=== PATIENT | female | born 1950 | race Caucasian/White ===

== ENCOUNTER → 2023-06-17 16:08 | Outpatient (REF) | payer MEDICARE, SELFPAY | LOC: HWRAD 16:08 | PROVIDERS: ATTENDING PHYSICIAN Physician Assistant Medical | DX: R05.1 Acute cough (principal) | CPT/HCPCS: 71046 ==

== ENCOUNTER → 2023-06-29 18:30 | Outpatient (REF) | payer MEDICARE, SELFPAY | LOC: WDC 18:30 | PROVIDERS: ATTENDING PHYSICIAN Physician Assistant Medical | DX: Z12.31 Encounter for screening mammogram for malignant neoplasm of breast (principal) | CPT/HCPCS: 77063; 77067 ==

== ENCOUNTER → 2023-09-25 11:30 | Outpatient (REF) | payer MEDICARE, SELFPAY | LOC: RAD 11:30 | PROVIDERS: ATTENDING PHYSICIAN Internal Medicine; FAMILY PHYSICIAN Physician Assistant Medical | DX: R22.1 Localized swelling, mass and lump, neck (principal) | CPT/HCPCS: 76536 ==

== ENCOUNTER → 2024-01-19 17:47 | Outpatient (REF) | payer MEDICARE, SELFPAY | LOC: MRI 17:47 | PROVIDERS: ATTENDING PHYSICIAN Physician Assistant Surgical; FAMILY PHYSICIAN Physician Assistant Medical | DX: M25.511 Pain in right shoulder (principal) | CPT/HCPCS: 73221 ==

== ENCOUNTER → 2024-04-19 10:01 | Outpatient (REF) | payer MEDICARE, SELFPAY | LOC: HWRAD 10:01 | PROVIDERS: ATTENDING PHYSICIAN Family Medicine; FAMILY PHYSICIAN Physician Assistant Medical | DX: R31.0 Gross hematuria (principal) | CPT/HCPCS: 76770 ==

== ENCOUNTER → 2024-05-01 12:18 | Outpatient (REF) | payer MEDICARE, SELFPAY | LOC: PAVMRI 12:18 | PROVIDERS: ATTENDING PHYSICIAN Psychiatry & Neurology Neurology; FAMILY PHYSICIAN Physician Assistant Medical | DX: R41.3 Other amnesia (principal) | CPT/HCPCS: 70551 ==

== ENCOUNTER → 2024-05-09 09:59 | Outpatient (REF) | payer MEDICARE, SELFPAY | LOC: RAD 09:59 | PROVIDERS: ATTENDING PHYSICIAN Specialist; FAMILY PHYSICIAN Physician Assistant Medical | DX: R31.0 Gross hematuria (principal); N20.0 Calculus of kidney | CPT/HCPCS: 74178; Q9967 ==

== ENCOUNTER → 2024-05-16 10:46 | Outpatient (REF) | payer MEDICARE, SELFPAY | LOC: RAD 10:46 | PROVIDERS: ATTENDING PHYSICIAN Specialist | DX: N20.0 Calculus of kidney (principal) | CPT/HCPCS: 74018 ==

== ENCOUNTER 2024-05-19 06:17 | Day surgery (SDC) | payer MEDICARE, SELFPAY ==
[2024-05-19 10:00] VITALS: BP 138/61
[2024-05-19] MEDS: NORMOSOL-R/PLASMALYTE-A 1000 IV (10:05)
[2024-05-19 10:21] VITALS: BMI 23.0
[2024-05-19 10:22] VITALS: BMI 23.0
[2024-05-19 10:24] LABS: Hematocrit 40.7 % (37.0-47.0); Hemoglobin 13.8 g/dL (12.0-16.0); Mean Corp Hgb Conc. 33.9 g/dL (33.0-37.0); Mean Corpuscular Hgb 30.1 pg (27.0-31.0); Mean Corpuscular Volume 88.7 fL (81.0-99.0); Mean Platelet Volume 10.5 fL (7.4-10.4); Platelet Count 180 10^3/uL (130-400); Red Blood Cell Count 4.59 10^6/uL (4.20-5.40); Red Cell Dist. Width 12.6 % (11.5-14.5); White Blood Cell Count 7.2 10^3/uL (4.8-10.8)
[2024-05-19 10:43] LABS: ALT (SGPT) 16 U/L (0-35); AST (SGOT) 21 U/L (14-36); Albumin 3.9 g/dl (3.5-5.0); Alkaline Phosphatase 62 U/L (38-126); Blood Urea Nitrogen 20 mg/dl (7-17); Calcium 9.6 mg/dl (8.4-10.2); Carbon Dioxide 28 mmol/L (22-30); Chloride 105 mmol/L (98-107); Estimated Creatinine Clearance 52 ml/min; Glucose 94 mg/dl (70-99); Potassium 3.8 mmol/L (3.5-5.1); Sodium 140 mmol/L (135-145); Total Protein 6.4 g/dl (6.3-8.2); eGFR > 60.00
[2024-05-19 12:15] VITALS: BP 129/66; BP 138/61
[2024-05-19 12:30] VITALS: BP 136/67
[2024-05-19] MEDS: Pyridium 200 MG PO (12:52)
[2024-05-19 13:08] VITALS: BP 160/78
[2024-05-19 13:23] VITALS: BP 149/83
[2024-05-19 13:40] VITALS: BP 152/75
== END 2024-05-19 13:50 | disposition home or self-care (01) ==
LOC: SDS 06:17
PROVIDERS: ATTENDING PHYSICIAN Specialist
DX: N20.2 Calculus of kidney with calculus of ureter (principal)
CPT/HCPCS: 52356; 74018; 76000; 80053; 82365; 85027; 93005; A4300; C1894; C2617

== ENCOUNTER → 2024-07-07 13:53 | Outpatient (REF) | payer MEDICARE, SELFPAY | LOC: WDC 13:53 | PROVIDERS: ATTENDING PHYSICIAN Physician Assistant Medical | DX: Z12.31 Encounter for screening mammogram for malignant neoplasm of breast (principal) | CPT/HCPCS: 77063; 77067 ==

== ENCOUNTER 2024-12-01 06:53 | Outpatient (RCR) | payer MEDICARE, SELFPAY | END 2024-12-01 23:59 | disposition home or self-care (01) | LOC: RPT 06:53 | PROVIDERS: ATTENDING PHYSICIAN Physician Assistant Medical; FAMILY PHYSICIAN Physician Assistant Medical | DX: M76.891 Other specified enthesopathies of right lower limb, excluding foot (principal); M79.651 Pain in right thigh; Z73.6 Limitation of activities due to disability | CPT/HCPCS: 97162; 97530 ==

== ENCOUNTER 2025-01-03 11:31 | Outpatient (RCR) | payer MEDICARE, SELFPAY | END 2025-01-03 23:59 | disposition home or self-care (01) | LOC: RPT 11:31 | PROVIDERS: ATTENDING PHYSICIAN Physician Assistant Medical; FAMILY PHYSICIAN Physician Assistant Medical | DX: M76.891 Other specified enthesopathies of right lower limb, excluding foot (principal); M79.651 Pain in right thigh; Z73.6 Limitation of activities due to disability; R26.2 Difficulty in walking, not elsewhere classified; M62.81 Muscle weakness (generalized) | CPT/HCPCS: 97112; 97140; 97530 ==

== ENCOUNTER 2025-01-24 16:04 | Outpatient (RCR) | payer MEDICARE, SELFPAY | END 2025-01-24 23:59 | disposition home or self-care (01) | LOC: RPT 16:04 | PROVIDERS: ATTENDING PHYSICIAN Physician Assistant Medical; FAMILY PHYSICIAN Physician Assistant Medical | DX: M76.891 Other specified enthesopathies of right lower limb, excluding foot (principal); M79.651 Pain in right thigh; Z73.6 Limitation of activities due to disability; R26.2 Difficulty in walking, not elsewhere classified; M62.81 Muscle weakness (generalized) | CPT/HCPCS: 97112; 97140; 97530 ==

== ENCOUNTER → 2025-01-24 18:30 | Outpatient (REF) | payer MEDICARE, SELFPAY | LOC: PAVMRI 18:30 | PROVIDERS: ATTENDING PHYSICIAN Physician Assistant Medical; FAMILY PHYSICIAN Physician Assistant Medical | DX: M25.552 Pain in left hip (principal) | CPT/HCPCS: 73721 ==